=== PATIENT | male | born 1990 | race Caucasian/White ===

== ENCOUNTER 2019-06-02 06:19 | Emergency (ER) | payer SELFPAY ==
[~2019-06-02] VITALS: Ht 170.2 cm; Wt 83.6 kg
[2019-06-02 06:22] VITALS: BP 145/100; Ht 170.2 cm; Wt 83.6 kg
== END 2019-06-02 07:00 | disposition home or self-care (01) ==
LOC: ED 06:19
DX: S49.92XA Unspecified injury of left shoulder and upper arm, initial encounter (principal); X58.XXXA Exposure to other specified factors, initial encounter; Y93.89 Activity, other specified; Y92.89 Other specified places as the place of occurrence of the external cause; Y99.8 Other external cause status